=== PATIENT | female | born 1945 | race Caucasian/White ===

== ENCOUNTER 2018-12-01 11:27 | Inpatient (IN) ==
--- NOTE | 2018-12-01 12:12 | ED ---
HPI General Chief Complaint: Recheck/Abnormal Lab/Rx Stated Complaint: Abnormal labs/sent by Dr Anthony Time Seen by Provider: 12/01/18 11:58 Source: patient Mode of arrival: ambulatory Limitations: no limitations History of Present Illness HPI narrative: Patient is a 73-year-old female, past medical history significant for diabetes and hypertension who presents with complaint of abnormal hemoglobin. She had routine labs drawn by her primary care doctor yesterday and was called back today stating that her hemoglobin was low. The patient had a hard time understanding the person the fall but believes they said that it was 6. She has not had any lightheadedness, shortness of breath, chest pain, abdominal pain, black or bloody stools. She feels well and has 0 complaints. She is not on any blood thinners or aspirin. complaint: Reports abnormal lab Initial visit (ago): day(s) Returns today for: called because of abnormal lab/test Symptoms since prior visit: Reports no new symptoms Context: Reports called for abnormal lab result Associated symptoms: Reports none Related Data Home Medications Medication Instructions Recorded Confirmed allopurinol 0 mg PO HS 12/01/18 12/01/18 atenolol 0 mg PO BID 12/01/18 12/01/18 lisinopril 0 mg PO HS 12/01/18 12/01/18 metformin 750 mg PO QPM 12/01/18 12/01/18 omeprazole 0 mg PO HS 12/01/18 12/01/18 pravastatin 0 mg PO HS 12/01/18 12/01/18 Allergies Allergy/AdvReac Type Severity Reaction Status Date / Time codeine AdvReac Unknown ABD CRAMPS Verified 12/01/18 11:49 Review of Systems ROS: all other systems reviewed are negative [facility] Medical History Medical History Diabetes (Acute) GERD (gastroesophageal reflux disease) (Acute) Gout (Acute) Hypertension (Acute) Tachycardia (Acute) Tubal ligation status (Acute) Surgical History Surgical History H/O rotator cuff surgery (Acute) History of thyroid surgery (Acute) Hx of cholecystectomy (Acute) Hx of removal of ovary (Acute) Social History Social History Substance History: No History of Abuse Smoking Status: Heavy tobacco smoker Tobacco Type: Cigarettes How Often Do You Have a Drink Containing Alcohol: Never [facility] within the Last 8 Weeks: No Recent Out of Country Travel within the Last 8 Weeks: No Immunization History Tetanus Immunization: >5 Years Exam Narrative Exam Narrative: GENERAL: Well-appearing elderly female in no acute distress SKIN: Focused skin assessment warm/dry. No rashes. Pale. HEAD: Atraumatic. Normocephalic. EYES: Pupils equal and round. No scleral icterus. No injection or drainage. ENT: No nasal bleeding or discharge. Mucous membranes pink and moist. NECK: Trachea midline. No JVD. CARDIOVASCULAR: Regular rate and rhythm. No murmur appreciated. Intact and equal peripheral pulses. RESPIRATORY: No accessory muscle use. Clear to auscultation. Breath sounds equal bilaterally. GASTROINTESTINAL: Abdomen soft, non-tender, nondistended. Hepatic and splenic margins not palpable. : Done with RN present - Guaiac negative. MUSCULOSKELETAL: No obvious deformities. No clubbing. No cyanosis. No edema. NEUROLOGICAL: Awake and alert. No obvious cranial nerve deficits. Motor grossly within normal limits. Normal speech. PSYCHIATRIC: Appropriate mood and affect; insight and judgment normal. Course Initial Documented Vital Signs Temperature 98.0 F 12/01/18 11:46 Pulse Rate 87 12/01/18 11:46 Respiratory Rate 18 12/01/18 11:46 Blood Pressure 134/62 12/01/18 11:46 Pulse Oximetry 99 12/01/18 11:46 Last Documented Vital Signs Temperature 98.0 F 12/01/18 11:46 Pulse Rate 87 12/01/18 11:46 Respiratory Rate 18 12/01/18 11:46 Blood Pressure 134/62 12/01/18 11:46 Pulse Oximetry 99 12/01/18 11:46 Medical Decision Making [facility] Narrative Medical decision making narrative: Patient is a 73-year-old female who presented here with complaint of abnormal lab. She appears pale but well overall. Labs reveal a hemoglobin of 5.9. Guaiac is negative and she has not had any bleeding from anywhere that she is aware of. 2 units of packed red blood cells have been ordered and she has been admitted to Dr. Mclean, hospitalist second helper, for further evaluation and management. Medical Screen Exam Complete: Yes Emergency Medical Condition: Yes Differential Diagnosis Differential Diagnosis: Differential diagnosis includes but is not limited to asymptomatic anemia, GI bleed, leukemia. Medical Records Medical records reviewed: Yes I reviewed the patient's medical records. Lab Data Lab results reviewed: Yes I reviewed the patient's lab results. Result diagrams: 12/01/18 12:15 12/01/18 12:58 Lab Results 12/01/18 12/01/18 Range/Units 12:15 12:58 CBC w Diff Slide review pending WBC 6.1 (4.0-11.0) th/mm3 RBC 3.66 L (4.00-5.30) mil/mm3 Hgb 5.9 L* (11.6-15.3) gm/dL Hct 20.5 L* (35.0-46.0) % MCV 56.2 L (80.0-100.0) fL MCH 16.0 L (27.0-34.0) pg MCHC 28.6 L (32.0-36.0) % RDW 22.4 H (11.6-17.2) % Plt Count 422 (150-450) th/mm3 MPV 7.9 (7.0-11.0) fL Neut % (Auto) 78.6 H (16.0-70.0) % Lymph % (Auto) 14.2 (9.0-44.0) % [place] % (Auto) 5.8 (0.0-8.0) % Eos % (Auto) 0.8 (0.0-4.0) % Baso % (Auto) 0.6 (0.0-2.0) % Neut # (Auto) 4.8 (1.8-7.7) th/mm3 Lymph # (Auto) 0.9 L (1.0-4.8) th/mm3 [place] # (Auto) 0.4 (0.0-0.9) th/mm3 Eos # (Auto) 0.0 (0.0-0.4) th/mm3 Baso # (Auto) 0.0 (0.0-0.2) th/mm3 WBC Differential . Diff Scan Auto diff confirmed Differential Comment . Target Cells 1+ H (None) Acanthocytes (Spur) 1+ H (None) Sodium 139 (136-145) meq/L Potassium 3.6 (3.5-5.1) meq/L Chloride 107 (98-107) meq/L Carbon Dioxide 26.3 (21.0-32.0) meq/L Anion Gap 6 (5-15) meq/L BUN 21 H (7-18) mg/dL Creatinine 0.79 (0.50-1.00) mg/dL Estimated GFR 71 L (>89) mL/min Random Glucose 116 H (74-106) mg/dL Calcium 8.6 (8.5-10.1) mg/dL Total Bilirubin 0.2 (0.2-1.0) mg/dL AST 9 L (15-37) U/L ALT 8 L (10-53) U/L Alkaline Phosphatase 90 (45-117) U/L Total Protein 6.8 (6.4-8.2) g/dL Albumin 2.8 L (3.4-5.0) g/dL Discharge Plan Discharge Disposition Patient Disposition: ED Admit(ED Internal Use Only) Discharge Condition Condition: Stable Discharge Order Discharge Orders: ED Use Only Admit Order (Routine); Ordered 12/01/18 Ordered By: Sara Pepe Discharge Details Diagnosis: Acute anemia Physicians Team ED Provider: Sara Pepe Primary Care Provider: Charbel Anthony Rxs /Orders / Referrals /Forms Prescriptions: No Action atenolol 25 mg Tablet PO BID RF: 0 allopurinol 100 mg Tablet PO HS RF: 0 pravastatin 10 mg Tablet PO HS RF: 0 omeprazole 20 mg Capsule,Delayed Release(Dr/Ec) PO HS RF: 0 lisinopril 2.5 mg Tablet PO HS RF: 0 metformin 750 mg Tablet Extended Release 24 Hr 750 mg PO QPM RF: 0 Status ED Status: Pending Admission
[2018-12-01 12:38] LABS: Baso % (Auto) 0.6 % (0.0-2.0); Eos % (Auto) 0.8 % (0.0-4.0); Lymph # (Auto) 0.9 th/mm3 (1.0-4.8); Lymph % (Auto) 14.2 % (9.0-44.0); Mean Corpuscular Volume 56.2 fL (80.0-100.0); Mean Platelet Volume 7.9 fL (7.0-11.0); Mono # (Auto) 0.4 th/mm3 (0.0-0.9); Mono % (Auto) 5.8 % (0.0-8.0); Neut # (Auto) 4.8 th/mm3 (1.8-7.7); Neut % (Auto) 78.6 % (16.0-70.0); Platelet Count 422 th/mm3 (150-450); Red Blood Count 3.66 mil/mm3 (4.00-5.30); Red Cell Distribution Width 22.4 % (11.6-17.2); White Blood Count 6.1 th/mm3 (4.0-11.0)
[2018-12-01 12:39] LABS: Mean Corpuscular HGB Conc 28.6 % (32.0-36.0)
[2018-12-01 12:40] LABS: Hematocrit 20.5 % (35.0-46.0); Hemoglobin 5.9 gm/dL (11.6-15.3)
[2018-12-01] MEDS ORDERED: Sodium Chlor 0.9% Inj 250 ML IV.SIG SCH (13:00)
[2018-12-01 13:05] LABS: Target Cells 1+
[2018-12-01 13:06] LABS: Acanthocytes 1+
[2018-12-01 13:13] LABS: Chloride 107 meq/L (98-107); Potassium 3.6 meq/L (3.5-5.1); Sodium 139 meq/L (136-145)
[2018-12-01 13:16] LABS: Calcium 8.6 mg/dL (8.5-10.1)
[2018-12-01 13:17] LABS: Albumin 2.8 g/dL (3.4-5.0); Anion Gap 6 meq/L (5-15); Blood Urea Nitrogen 21 mg/dL (7-18); Carbon Dioxide 26.3 meq/L (21.0-32.0); Glucose,Random 116 mg/dL (74-106)
[2018-12-01 13:20] LABS: Alanine Aminotransferase 8 U/L (10-53); Aspartate Aminotransferase 9 U/L (15-37); Glomerular Filtration Rate 71 mL/min (>89)
[2018-12-01 13:21] LABS: Total Protein 6.8 g/dL (6.4-8.2)
[2018-12-01 13:23] LABS: Alkaline Phosphatase 90 U/L (45-117)
[2018-12-01] MEDS ORDERED: Acetaminophen 325 MG Tablet PO PRN (13:24)
[2018-12-01 14:09] LABS: C-Reactive Protein 3.49 mg/dL (0.00-0.30)
[2018-12-01 14:35] LABS: Erythrocyte Sedimentation Rate 49 mm/hr (0-30)
[2018-12-01] MEDS ORDERED: Dextrose 50% in Water 50 ML Vial IV.PUSH PRN (15:03)
--- NOTE | 2018-12-01 15:06 | P.HPIM ---
History of Present Illness Primary Care Physician: Charbel Anthony MD Chief Complaint: Patient told to come here by her primary medical doctor History of Present Illness: 73-year-old female with known history of hypertension, diabetes, gastroesophageal reflux, gout who came to the hospital at the request of her primary medical doctor's office to get a transfusion. Patient was preparing for her regular follow-up with her primary medical doctor and underwent laboratory studies. Patient was then called today by her primary medical doctor and was told to go to the hospital for transfusion. Patient states that back when she is she did have some iron and the. During that time she was on iron supplementation. However she has not required any since then. Patient denies any recent diagnosis of anemia. Patient denies any abdominal pain, nausea, vomiting, melena, hematochezia, lightheadedness, dizziness, shortness of breath, syncope.. Patient indicates that her stool color ranges anywhere from light brown to dark brown, however she is never had any black tarry stools. Patient did have workup in emergency department and found to have a hemoglobin of 5.9. RBC indices also indicating microcytosis with target cells. Patient was recommended admission for transfusion. Inpatient Certification Inpatient Certification: I certify that the inpatient services were ordered in accordance with Medicare regulations governing the order. This includes certification that hospital inpatient services are reasonable and necessary and in the case of services not specified as inpatient-only under 42 CFR 419.22(n), that they are appropriately provided as inpatient services in accordance to with the 2-midnight benchmark under 43 CFR 412.3(e) Estimated Total Length of Stay (Days): 3 Plans for Post Hospital Care: Home Review of Systems Review of Systems: all other systems reviewed are negative [facility] Medical History Medical History Diabetes (Acute) GERD (gastroesophageal reflux disease) (Acute) Gout (Acute) Hypertension (Acute) Tachycardia (Acute) Surgical History Surgical History H/O rotator cuff surgery (Acute) History of thyroid surgery (Acute) Hx of cholecystectomy (Acute) Hx of removal of ovary (Acute) Tubal ligation status (Acute) Family History Family History Other No pertinent family history Social History Social History Substance History: No History of Abuse Second Hand Smoke Exposure: Yes Smoking Status: Current every day smoker Tobacco Type: Cigarettes How Often Do You Have a Drink Containing Alcohol: Never Recent Travel in [facility] within the Last 8 Weeks: No Recent Out of Country Travel within the Last 8 Weeks: No Immunization History Tetanus Immunization: >5 Years Medications and Allergies Allergies Allergy/AdvReac Type Severity Reaction Status Date / Time codeine AdvReac Unknown ABD CRAMPS Verified 12/01/18 11:49 Home Medications Medication Instructions Recorded Confirmed Type allopurinol 100 mg PO HS 12/01/18 12/01/18 History atenolol 0 mg PO BID 12/01/18 12/01/18 History lisinopril 20 mg PO HS 12/01/18 12/01/18 History metformin 750 mg PO QPM 12/01/18 12/01/18 History omeprazole 20 mg PO HS 12/01/18 12/01/18 History pravastatin 10 mg PO HS 12/01/18 12/01/18 History Active Medications: Active Medications Acetaminophen (Tylenol) 650 mg PO Q4H PRN PRN Reason: Temp > 100.4 Al Hydroxide/Mg Hydroxide (Milk Of Magnshannen Liq) 30 ml PO Q12H PRN PRN Reason: Mild Constipation Sodium Chloride (Ns Inj) 250 mls @ 15 mls/hr IV.SIG ONCE FAUZIA Stop: 12/02/18 05:39 Ondansetron HCl (Zofran Inj) 4 mg IV.PUSH Q6H PRN PRN Reason: NAUSEA OR VOMITING Sodium Chloride (Ns Flush) 2 ml IV.FLUSH PRN PRN PRN Reason: FLUSH AFTER USING IV ACCESS Sodium Chloride (Ns Flush) 2 ml IV.FLUSH BID FAUZIA Physical Exam Vital signs: Vital Signs 12/01/18 11:46 12/01/18 13:30 Temperature 98.0 F Pulse Rate 87 70 Respiratory Rate 18 18 Blood Pressure 134/62 138/71 Pulse Oximetry 99 100 Intake & Output 11/30/18 12/01/18 12/01/18 18:59 06:59 18:59 Weight 63.6 kg Narrative: GENERAL: Well-developed, well-nourished, in no acute distress. alert and orientated HEENT: Head is normocephalic without any lesions or masses noted. Facial features are symmetric. Eyes: Pupils equal round reactive to light. Extraocular muscles are intact. Conjunctivae were clear. Oropharyngeal: Pharynx without any erythema edema. Tongue is midline without deviation. Buccal mucosa is moist without any masses or lesions NECK: Supple without any masses. Trachea midline no deviation. No JVD, no bruits are appreciated CARDIAC: Regular rhythm, regular rate. S1/S2 are heard. No murmurs gallops or rubs. LUNGS: Clear to auscultation bilaterally. No wheeze, rhonchi or rales. No use of accessory muscles on inspiration or expiration. ABDOMEN: Soft, nontender. Nondistended. Bowel sounds heard in all 4 quadrants. No organomegaly or masses. Negative rebound, negative guarding EXTREMITIES: No edema, pulses are equal bilaterally. No cyanosis or clubbing NEUROLOGY: Mood and affect appear appropriate. Cranial nerves II through XII grossly intact. Muscle strength 5/5 in upper and lower extremities bilaterally. Deep tendon reflexes are 2+ in upper and lower extremities bilaterally. Results Labs CBC & Chem 7: 12/01/18 12:15 12/01/18 12:58 Caprini VTE Risk Assessment Caprini VTE Risk Assessment: Moderate/High Risk (score >= 2) Caprini Risk Assessment Model: Point Value = 1 Point Value = 2 Point Value = 3 Point Value = 5 Age 41-60 Minor surgery BMI > 25 kg/m2 Swollen legs Varicose veins or History of unexplained or recurrent spontaneous Oral contraceptives or hormone replacement Sepsis (< 1 month) Serious lung disease, including pneumonia (< 1 month) Abnormal pulmonary function Acute myocardial infarction Congestive heart failure (< 1 month) History of inflammatory bowel disease Medical patient at bed rest Age 61-74 Arthroscopic surgery Major open surgery (> 45 min) Laparoscopic surgery (> 45 min) Malignancy Confined to bed (> 72 hours) Immobilizing plaster cast Central venous access Age >= 75 History of VTE Family history of VTE Factor V Leiden Prothrombin [id number] Lupus anticoagulant Anticardiolipin antibodies Elevated serum homocysteine Heparin-induced thrombocytopenia Other congenital or acquired thrombophilia Stroke (< 1 month) Elective arthroplasty Hip, pelvis, or leg fracture Acute spinal cord injury (< 1 month) Prophylaxis Regimen: Total Risk Factor Score Risk Level Prophylaxis Regimen 0-1 Low Early ambulation 2 Moderate Order ONE of the following: *Sequential Compression Device (SCD) *Heparin 5000 units SQ BID 3-4 Higher Order ONE of the following medications: *Heparin 5000 units SQ TID *Enoxaparin/Lovenox 40 mg SQ daily (WT < 150 kg, CrCl > 30 mL/min) *Enoxaparin/Lovenox 30 mg SQ daily (WT < 150 kg, CrCl > 10-29 mL/min) *Enoxaparin/Lovenox 30 mg SQ BID (WT < 150 kg, CrCl > 30 mL/min) AND/OR *Sequential Compression Device (SCD) 5 or more Highest Order ONE of the following medications: *Heparin 5000 units SQ TID (Preferred with Epidurals) *Enoxaparin/Lovenox 40 mg SQ daily (WT < 150 kg, CrCl > 30 mL/min) *Enoxaparin/Lovenox 30 mg SQ daily (WT < 150 kg, CrCl > 10-29 mL/min) *Enoxaparin/Lovenox 30 mg SQ BID (WT < 150 kg, CrCl > 30 mL/min) AND *Sequential Compression Device (SCD) Assessment and Plan Plan Microcytic anemia Patient is asymptomatic, only history of anemia was when she was with iron and B12 deficiency Heme-negative stool in the emergency department Obtain anemia workup Transfuse 2 units packed red blood cells Monitor hemoglobin hematocrit Hematology consulted for further evaluation Hypertension Continue home medications Diabetes Accu-Cheks with sliding scale insulin DVT prevention Sequential compression devices Avoid chemical prophylaxis secondary to anemia Discussed Condition With: Patient, nursing staff, Dr. Mclean
[2018-12-01 16:03] LABS: Reticulocyte Percent 2.4 % (0.4-3.0)
[2018-12-01 16:14] LABS: Iron 9 mcg/dL (50-170)
[2018-12-01 16:39] LABS: % Iron Saturation 2.1 % (20-50); Ferritin 6 ng/mL (8-252); Folate 10.7 ng/mL (3.1-17.5); Total Iron Binding Capacity 424 mcg/dL (250-450); Vitamin B12 217 pg/mL (193-986)
[2018-12-01] MEDS: Insulin NovoLOG Aspart Correctional Sugar Inj SQ SCH ×2 (17:03→22:18)
[2018-12-01] MEDS: Ferrous Sulfate 325 MG Tablet PO SCH (22:18)
--- NOTE | 2018-12-02 02:03 | MB ---
cc: Ivelisse Neff MD DATE: 12/01/2018 REASON FOR CONSULTATION: Consult requested by hospitalist for evaluation of microcytic hypochromic anemia. HISTORY OF PRESENT ILLNESS: Teri is a pleasant 73-year-old female. She recently had a routine followup and visit with her family physician Dr Anthony. Routine blood test was ordered. Yesterday, she received a call that her hemoglobin is very low at 5.9. Therefore, she was advised to come to the hospital for blood transfusion. The patient denies any previous history of anemia except that when she was she states that she used to have B12 injections. She denies any blood in the stool. Her last colonoscopy was 4-5 years ago. It was incomplete. She was told that she became hypotensive during the procedure, and it was terminated. Therefore, she has not had a repeat colonoscopy as she is scared of that. The patient states that she does not have any symptoms of the anemia. She is getting blood transfusions. The first unit of blood was just hung. The rest of the review of systems is negative. PAST MEDICAL HISTORY: Gout, hypertension, gastroesophageal reflux disease, diabetes mellitus and hypercholesterolemia and hypertension. PAST SURGICAL HISTORY: Rotator cuff surgery, thyroid surgery, cholecystectomy, and removal of the ovary and tubal ligation. ALLERGIES: CODEINE. MEDICATIONS: 1. Allopurinol. 2. Atenolol. 3. Lisinopril. 4. Metformin. 5. Omeprazole. 6. Pravastatin. FAMILY HISTORY: None for malignancy. SOCIAL HISTORY: The patient smokes cigarettes, one pack a day. She does not drink alcohol. PHYSICAL EXAMINATION: GENERAL: A well-developed, well-nourished white female, in no apparent distress. VITAL SIGNS: Temperature 96.5, heart rate 62, blood pressure 117/63. HEAD, EYES, EARS, NOSE, AND THROAT: Pupils equal, round, reactive to light and accommodation, extraocular movements intact. Anicteric. No oral lesions noted. No thrush noted. NECK: Supple. No JVD. No masses noted. LUNGS: Clear. No wheezing, rhonchi, or rales. HEART: Regular rate and rhythm. No murmur heard. ABDOMEN: Soft and nontender. No hepatosplenomegaly. No abnormal bowel sounds. No guarding or rigidity noted. EXTREMITIES: No pedal edema. No cyanosis, no clubbing. NEUROLOGIC: Awake, alert, oriented x 3. Sensory and motor seem to be intact. SKIN: No bruises or petechiae noted. BREASTS: No masses noted. LYMPH NODES: No cervical, supraclavicular, or axillary lymphadenopathy noted. BACK: There is no spinal tenderness noted. ASSESSMENT: Microcytic hypochromic anemia due to severe iron deficiency. The cause of iron deficiency is unknown at the present time. She does not have any obvious gastrointestinal bleeding. PLAN: I have reviewed her available records, and I have discussed with the patient regarding the blood test results from today when she came to the hospital for admission. CBC: White count 6.1, hemoglobin 5.9, hematocrit is 20.5, platelets 422. Reticulocyte count is 2.4. CMP is normal except BUN is 21, glucose is 116. AST and ALT both are low and albumin is 2.8. B12 is 217, serum folate is 10.7. Serum ferritin is 6, serum iron is 9, TIBC is high normal at 424 and iron saturation is 2.1. The patient has severe iron deficiency anemia. She will get 2 units of blood transfusion as ordered. We discussed about iron infusion versus oral iron. The patient prefers to take oral iron for now. If her iron level does not improve with p.o. iron, then she will consider intravenous iron infusion as an outpatient. She was advised that after she is discharged to home, she can call our office to make an appointment for followup of anemia. I have ordered ferrous sulfate for her to take 3 times a day. Given that her B12 is borderline low at 217 and she had previous history of vitamin B12 injections during , I will check for pernicious anemia. I will order serum methylmalonic acid, homocysteine, intrinsic factor antibody and antiparietal antibody. After the second unit of blood transfusion, A repeat CBC should be done. If her hemoglobin is more than 8, then she can be safely discharge to home, and I will follow her as an outpatient. I have placed an order for her stools to be checked for blood. Last colonoscopy was 4-5 years ago. Due to history of hypotension during the procedure, which was terminated, she is very concerned and so she has declined to have colonoscopy. Thank you for asking my opinion. MD BRITNEY Encinas/alana , 12:46 AM , 01:01 AM MTDJosephine
[2018-12-02 08:09] LABS: Baso % (Auto) 0.5 % (0.0-2.0); Eos # (Auto) 0.1 th/mm3 (0.0-0.4); Hematocrit 26.7 % (35.0-46.0); Lymph % (Auto) 16.8 % (9.0-44.0); Mean Corpuscular Hemoglobin 19.2 pg (27.0-34.0); Mean Corpuscular Volume 64.2 fL (80.0-100.0); Mean Platelet Volume 8.3 fL (7.0-11.0); Mono # (Auto) 0.4 th/mm3 (0.0-0.9); Mono % (Auto) 6.7 % (0.0-8.0); Neut # (Auto) 4.6 th/mm3 (1.8-7.7); Platelet Count 316 th/mm3 (150-450); Red Blood Count 4.15 mil/mm3 (4.00-5.30); Red Cell Distribution Width 26.8 % (11.6-17.2); White Blood Count 6.1 th/mm3 (4.0-11.0)
[2018-12-02 08:11] LABS: Mean Corpuscular HGB Conc 29.9 % (32.0-36.0)
[2018-12-02 08:18] LABS: Chloride 109 meq/L (98-107); Potassium 3.5 meq/L (3.5-5.1); Sodium 142 meq/L (136-145)
[2018-12-02 08:25] LABS: Albumin 2.5 g/dL (3.4-5.0); Anion Gap 6 meq/L (5-15); Calcium 8.2 mg/dL (8.5-10.1); Carbon Dioxide 26.6 meq/L (21.0-32.0); Glucose,Random 95 mg/dL (74-106)
[2018-12-02] MEDS: Insulin NovoLOG Aspart Correctional Sugar Inj SQ SCH (08:25)
[2018-12-02 08:26] LABS: Blood Urea Nitrogen 14 mg/dL (7-18)
[2018-12-02] MEDS: Ferrous Sulfate 325 MG Tablet PO SCH (08:26)
[2018-12-02 08:29] LABS: Alanine Aminotransferase 8 U/L (10-53); Aspartate Aminotransferase 9 U/L (15-37); Glomerular Filtration Rate Greater Than 89 mL/min (>89)
[2018-12-02 08:31] LABS: Alkaline Phosphatase 79 U/L (45-117)
--- NOTE | 2018-12-02 09:25 | P.DS ---
DS: Providers Date of admission: 12/01/18 13:34 Primary care physician: Charbel Anthony MD Consults: 12/01/18 13:27 Consult to Hematology Routine Consulting Provider: Elías Neff Reason for Consultation: Severe Anemia (Hgb 5.9). Stool negative for occult blood. Notified:: Service Spoke with:: ISABELLA Date Notified:: 12/01/18 Time Notified:: 13:39 Comments:: [id number] Ordering Provider: LINDSEY Anticipated date of discharge: 12/02/18 Brief History from admission: 73-year-old female with known history of hypertension, diabetes, gastroesophageal reflux, gout who came to the hospital at the request of her primary medical doctor's office to get a transfusion. Patient was preparing for her regular follow-up with her primary medical doctor and underwent laboratory studies. Patient was then called today by her primary medical doctor and was told to go to the hospital for transfusion. Patient states that back when she is she did have some iron and the. During that time she was on iron supplementation. However she has not required any since then. Patient denies any recent diagnosis of anemia. Patient denies any abdominal pain, nausea, vomiting, melena, hematochezia, lightheadedness, dizziness, shortness of breath, syncope.. Patient indicates that her stool color ranges anywhere from light brown to dark brown, however she is never had any black tarry stools. Patient did have workup in emergency department and found to have a hemoglobin of 5.9. RBC indices also indicating microcytosis with target cells. Patient was recommended admission for transfusion. DS: Summary 73-year-old female with known history of hypertension, diabetes, Gastrosoft reflux, gout who originally presented the hospital at the request of her prior medical doctor's office to receive transfusion because of abnormal laboratory studies. Patient had workup done in emergency department found to have a hemoglobin of 5.9. Laboratory studies indicating that patient had significant microcytic anemia. Patient was admitted to the hospital and transfused 2 units packed red blood cells with improvement of her hemoglobin to 8.0. Patient did have history of iron deficiency and B12 deficiency when she was . However she does not indicate that she was told that she needed to continue replacement therapy after that. [employer] Sales Representative was consulted during her stay in the hospital. Workup does indicate severe iron deficient anemia and mild B12 deficiency. [employer] Sales Representative recommended IV iron versus p.o. iron. Patient requesting that she was start with the p.o. iron at this time. Further studies are being ascertained to evaluate for the B12 deficiency to rule out any pernicious anemia. Patient clinically stable at this time. She is asymptomatic. It was recommended by the pet groomer that if patient's hemoglobin higher than 8.0 patient can be discharged home and recommend outpatient follow-up and management. We will plan discharge accordingly with appropriate outpatient follow-up with primary medical doctor and pet groomer. Patient originally anticipated to need at Least 2 midnights for recovery, but overall assessment and status improved faster than expected. Microcytic anemia, severe iron deficient anemia history of anemia was when she was with iron and B12 deficiency Heme-negative stool in the emergency department Anemia workup indicating severe iron deficient anemia, borderline B12 deficiency Transfused 2 units packed red blood cells Monitor hemoglobin hematocrit which improved to 8.0 Hematology consulted for further evaluation, who recommending further workup, administration of ferrous sulfate 325 mg 3 times daily, outpatient follow-up for further recommendations Hypertension Home medications were continued Diabetes Accu-Cheks with sliding scale insulin Time Spent with Patient Total time spent providing and/or coordinating discharge services: Greater than 30 minutes Quality: VTE Deep Vein Thrombosis/Pulmonary Embolism Present on Admission: No Exam Narrative Exam Narrative: GENERAL: Well-developed, well-nourished, in no acute distress. alert and orientated HEENT: Head is normocephalic without any lesions or masses noted. Facial features are symmetric. Eyes: Extraocular muscles are intact. Conjunctivae were clear. NECK: Supple without any masses. Trachea midline no deviation. No JVD, CARDIAC: Regular rhythm, regular rate. S1/S2 are heard. No murmurs gallops or rubs. LUNGS: Clear to auscultation bilaterally. No wheeze, rhonchi or rales. No use of accessory muscles on inspiration or expiration. ABDOMEN: Soft, nontender. Nondistended. Bowel sounds heard in all 4 quadrants. No organomegaly or masses. Negative rebound, negative guarding EXTREMITIES: No edema, pulses are equal bilaterally. No cyanosis or clubbing NEUROLOGY: Mood and affect appear appropriate. Cranial nerves II through XII grossly intact. Moving all extremities, speech is clear Results Labs on day of discharge: Labs from last 24 hours 12/02/18 12/02/18 12/02/18 07:39 07:10 07:10 CBC w Diff WBC RBC Hgb Hct MCV MCH MCHC RDW Plt Count MPV Neut % (Auto) Lymph % (Auto) Trigg % (Auto) Eos % (Auto) Baso % (Auto) Neut # (Auto) Lymph # (Auto) Trigg # (Auto) Eos # (Auto) Baso # (Auto) WBC Differential Diff Scan Differential Comment Target Cells Acanthocytes (Spur) ESR Retic Count Absolute Retic Sodium 142 Potassium 3.5 Chloride 109 H Carbon Dioxide 26.6 Anion Gap 6 BUN 14 Creatinine 0.60 Estimated GFR Greater than 89 POC Glucose 114 Random Glucose 95 Calcium 8.2 L Iron TIBC % Saturation Ferritin Total Bilirubin 1.0 AST 9 L ALT 8 L Alkaline Phosphatase 79 C-Reactive Protein Total Protein 6.0 L D Albumin 2.5 L Vitamin B12 Methylmalonic Acid Pending Folate Homocysteine Cardiovas Pending Rheumatoid Factor Scrn Rheumatoid Factor Titer BOBBY Screen Parietal Cell IgG Ab Pending Intrins Factor Block Ab Pending Blood Type Blood Type Recheck Antibody Screen MTS Gel Crossmatch 12/02/18 12/01/18 12/01/18 07:10 16:49 14:54 CBC w Diff Slide review pending WBC 6.1 RBC 4.15 Hgb 8.0 L D Hct 26.7 L MCV 64.2 L D MCH 19.2 L MCHC 29.9 L RDW 26.8 H D Plt Count 316 MPV 8.3 Neut % (Auto) 75.0 H Lymph % (Auto) 16.8 Trigg % (Auto) 6.7 Eos % (Auto) 1.0 Baso % (Auto) 0.5 Neut # (Auto) 4.6 Lymph # (Auto) 1.0 Trigg # (Auto) 0.4 Eos # (Auto) 0.1 Baso # (Auto) 0.0 WBC Differential Pending Diff Scan Differential Comment . Target Cells Acanthocytes (Spur) ESR Retic Count Absolute Retic Sodium Potassium Chloride Carbon Dioxide Anion Gap BUN Creatinine Estimated GFR POC Glucose 164 Random Glucose Calcium Iron TIBC % Saturation Ferritin Total Bilirubin AST ALT Alkaline Phosphatase C-Reactive Protein Total Protein Albumin Vitamin B12 Methylmalonic Acid Folate Homocysteine Cardiovas Rheumatoid Factor Scrn Rheumatoid Factor Titer BOBBY Screen Pending Parietal Cell IgG Ab Intrins Factor Block Ab Blood Type Blood Type Recheck Antibody Screen MTS Gel Crossmatch 12/01/18 12/01/18 12/01/18 12:58 12:48 12:15 CBC w Diff WBC RBC Hgb Hct MCV MCH MCHC RDW Plt Count MPV Neut % (Auto) Lymph % (Auto) Trigg % (Auto) Eos % (Auto) Baso % (Auto) Neut # (Auto) Lymph # (Auto) Trigg # (Auto) Eos # (Auto) Baso # (Auto) WBC Differential Diff Scan Differential Comment Target Cells Acanthocytes (Spur) ESR Retic Count Absolute Retic Sodium 139 Potassium 3.6 Chloride 107 Carbon Dioxide 26.3 Anion Gap 6 BUN 21 H Creatinine 0.79 Estimated GFR 71 L POC Glucose Random Glucose 116 H Calcium 8.6 Iron 9 L TIBC 424 % Saturation 2.1 L Ferritin 6 L Total Bilirubin 0.2 AST 9 L ALT 8 L Alkaline Phosphatase 90 C-Reactive Protein 3.49 H Total Protein 6.8 Albumin 2.8 L Vitamin B12 217 Methylmalonic Acid Folate 10.7 Homocysteine Cardiovas Rheumatoid Factor Scrn Negative Rheumatoid Factor Titer Not Reportable BOBBY Screen Parietal Cell IgG Ab Intrins Factor Block Ab Blood Type Blood Type Recheck Antibody Screen MTS Gel Crossmatch See Detail 12/01/18 12/01/18 12/01/18 12:15 12:15 12:15 CBC w Diff Slide review pending WBC 6.1 RBC 3.66 L Hgb 5.9 L* Hct 20.5 L* MCV 56.2 L MCH 16.0 L MCHC 28.6 L RDW 22.4 H Plt Count 422 MPV 7.9 Neut % (Auto) 78.6 H Lymph % (Auto) 14.2 Trigg % (Auto) 5.8 Eos % (Auto) 0.8 Baso % (Auto) 0.6 Neut # (Auto) 4.8 Lymph # (Auto) 0.9 L Trigg # (Auto) 0.4 Eos # (Auto) 0.0 Baso # (Auto) 0.0 WBC Differential . Diff Scan Auto diff confirmed Differential Comment . Target Cells 1+ H Acanthocytes (Spur) 1+ H ESR 49 H Retic Count 2.4 Absolute Retic 91.2 Sodium Potassium Chloride Carbon Dioxide Anion Gap BUN Creatinine Estimated GFR POC Glucose Random Glucose Calcium Iron TIBC % Saturation Ferritin Total Bilirubin AST ALT Alkaline Phosphatase C-Reactive Protein Total Protein Albumin Vitamin B12 Methylmalonic Acid Folate Homocysteine Cardiovas Rheumatoid Factor Scrn Rheumatoid Factor Titer BOBBY Screen Parietal Cell IgG Ab Intrins Factor Block Ab Blood Type B Positive Blood Type Recheck Not needed Antibody Screen Negative MTS Gel Crossmatch Additional Comments Discussed with patient, nursing staff, Dr. Mclean Discharge Plan Discharge Disposition Patient Disposition: 01 Discharge Home Discharge Condition Condition: Stable Discharge Order Discharge Orders: Discharge Order (Routine); Ordered 12/02/18 Ordered By: Hoang De La Cruz Discharge Details Anticipated Discharge Date: 12/02/18 Physicians Team ED Provider: Sara Pepe Primary Care Provider: Charbel Anthony Attending Provider: Sukumar Mclean Other Providers: Elías Neff Rxs /Orders / Referrals /Forms Prescriptions: New ferrous sulfate [FeroSul] 325 mg (65 mg iron) Tablet 325 mg PO TID Qty: 90 RF: 0 Continue atenolol 25 mg Tablet PO BID RF: 0 allopurinol 100 mg Tablet 100 mg PO HS RF: 0 pravastatin 10 mg Tablet 10 mg PO HS RF: 0 omeprazole 20 mg Capsule,Delayed Release(Dr/Ec) 20 mg PO HS RF: 0 lisinopril 2.5 mg Tablet 20 mg PO HS RF: 0 metformin 750 mg Tablet Extended Release 24 Hr 750 mg PO QPM RF: 0 Referrals: Elías Neff MD [Physician] - See Instructions (Follow-up with pet groomer in 2 weeks) Charbel Anthony MD [Primary Care Provider] - See Instructions (Follow-up of her medical doctor in 1 week) Discharge Instructions Patient Printed Instructions: Iron Supplements (By mouth), Iron Rich Diet (DC) , Iron Deficiency Anemia (GEN), Blood Transfusion Reactions (GEN), Blood Transfusion (GEN) Status ED Status: Left Department
[2018-12-02 10:04] LABS: Ovalocytes 1+; Spherocytes 1+; Target Cells 1+
[2018-12-02 10:39] VITALS: BP 123/60; PULSE 67; RESP 20; TEMP 96.4; O2SAT 95
[2018-12-03 13:34] LABS: Anti-Nuclear Antibody Screen Pos (Neg)
[2018-12-05 15:53] LABS: Homocysteine (Cardiovascular) 13.1 umol/L (<10.4)
== END 2018-12-02 10:08 | disposition home or self-care (01) | DRG 812 ==
LOC: PHED 11:27 → PHEDA 13:34 → PH3 14:20
PROVIDERS: ADMIT Hospitalist; ATTEND Hospitalist
CPT/HCPCS: 36430; 80053; 82131; 82607; 82728; 82746; 82948; 82962; 83090; 83516; 83540; 83550; 83918; 83921; 85025; 85044; 85651; 85652; 86038; 86039; 86140; 86256; 86340; 86430; 86431; 86850; 86900; 86901; 86923; 99285; J1815; J7050; P9016